=== PATIENT | female | born 1955 | race Hispanic/Latino ===

== ENCOUNTER 2019-05-15 07:41 | Day surgery (SDC) | payer OTHER ==
[2019-05-15 08:55] VITALS: BP 92/47
[2019-05-15] MEDS ORDERED: PROPOFOL 10 MG/ML 20ML VIAL IV ONE (09:37)
[2019-05-15] MEDS ORDERED: LACT10SO9 PO (09:41)
[2019-05-15] MEDS ORDERED: SPIR25TA PO (09:41)
[2019-05-15] MEDS ORDERED: METF-444 PO (09:41)
[2019-05-15] MEDS ORDERED: AEC81 PO (09:41)
[2019-05-15] MEDS ORDERED: LISI-617 PO (09:41)
[2019-05-15] MEDS ORDERED: HYDR12.54 PO (09:41)
[2019-05-15] MEDS ORDERED: OMEP40CA13 PO (09:41)
[2019-05-15] MEDS ORDERED: TRAZ-187 PO (09:41)
[2019-05-15] MEDS ORDERED: GABA-531 PO (09:41)
[2019-05-15] MEDS ORDERED: METO5TAB7 PO (09:41)
[2019-05-15] MEDS ORDERED: DULA1.5P SQ (09:41)
[2019-05-15] MEDS ORDERED: ATOR20TA65 PO (09:41)
[2019-05-15] MEDS ORDERED: SITA100T12 PO (09:41)
[2019-05-15] MEDS ORDERED: SODIUM CHLORIDE 0.9% 1000ML 1,000 ML IV ONE (09:45)
[2019-05-15] MEDS ORDERED: PHENYLEPHRINE HCL 10 MG/ML 1ML VIAL IV ONE (09:45)
[2019-05-15 10:12] VITALS: BP 96/53
[2019-05-15 10:17] VITALS: BP 109/50
[2019-05-15 10:22] VITALS: BP 100/76
[2019-05-15 10:26] VITALS: BP 92/35
== END 2019-05-15 10:35 | disposition home or self-care (01) ==
LOC: ENDO 07:41 → DAH 07:41 → ENDO 10:14
PROVIDERS: ATTEND Internal Medicine
DX: D50.9 Iron deficiency anemia, unspecified (principal); K29.50 Unspecified chronic gastritis without bleeding; B96.81 Helicobacter pylori [H. pylori] as the cause of diseases classified elsewhere; E78.5 Hyperlipidemia, unspecified; E11.9 Type 2 diabetes mellitus without complications; K21.9 Gastro-esophageal reflux disease without esophagitis; I11.0 Hypertensive heart disease with heart failure; I50.32 Chronic diastolic (congestive) heart failure; G47.00 Insomnia, unspecified; Z90.49 Acquired absence of other specified parts of digestive tract; Z90.710 Acquired absence of both cervix and uterus; Z79.84 Long term (current) use of oral hypoglycemic drugs; Z98.890 Other specified postprocedural states; Z98.49 Cataract extraction status, unspecified eye; Z79.899 Other long term (current) drug therapy; Z72.89 Other problems related to lifestyle; Z83.3 Family history of diabetes mellitus
CPT/HCPCS: 43239; 82948 ×2; A4215; A4221; A4222; A4223; A4606; A4620; A4663; J2370; J2704; J7030